=== PATIENT | female | born 1965 | race African-American/Black ===

== ENCOUNTER 2016-10-15 01:34 | Inpatient (IN) ==
[2016-10-15] MEDS ORDERED: ALBUTEROL 2.5 MG/3 ML NEB RESP TX STA (01:48)
[2016-10-15] MEDS ORDERED: DEXAMETHASONE 4 MG/1 ML VIAL IM STA (01:48)
[2016-10-15] MEDS ORDERED: DEXAMETHASONE 4 MG/1 ML VIAL ONE (01:53)
--- NOTE | 2016-10-15 02:43 | Emergency Department Note ---
IJessica Sierra, am scribing for, and in the presence of, Nic Brooks MD 01:52. Todd Ferrell Robert M, MD, personally performed the services described in this documentation, ascribed by Caterina Lopez in my presence, and it is both accurate and complete 241 . Arrival - Arrival Chief Complaint: Shortness of Breath Stated Complaint: wheezing ED Nursing Triage Note: pt arrives with complaint of shortness of breath and wheezing. pt states she was seen here thursday night for same complaint. pt given RT trtmt x 3 here and Rx's pt states she did not get filled. pt states she is not better, states she cannot breath. Mode of Arrival: Ambulatory Limitations: No Limitations Source: Patient - History of Present Illness HPI Narrative: Pt is a 51 y/o female that came to the ED with c/o SOB and wheezing that has not gotten better since she was here Thursday, October 13, 2016. Pt states she was give prescriptions but did not get them filled. She states she took an inhaler and Nyquil for relief last night. Pt is unaware if she has had a fever. No other complaints/pain in ED. Onset (ago): day(s) Consistency: constant Severity: mild Severity scale (1-10): 2 Quality: other Date of Last Menstrual Period: hyst Allergies/Adverse Reactions: Allergies Allergy/AdvReac Type Severity Reaction Status Date / Time hydrocodone Allergy ITCHING Verified 10/15/16 01:42 Home Medications: Home Medications Medication Instructions Recorded Confirmed Type Albuterol Inhaler [Proventil 2 puff INH Q6HR PRN 12/21/14 10/15/16 History Inhaler] Budesonide/Formoterol 160-4.5 2 puff INH BID 05/01/15 10/15/16 History [Symbicort 160-4.5] [place]-3 Fatty Acids [Fish Oil] 1,000 mg PO DAILY 05/01/15 10/15/16 History Vit C/Ascorbate Ca/Ascorb Sod 500 mg PO DAILY 04/16/16 10/15/16 History [Vitamin C 500 mg/15 ml Liquid] Mesalamine Tab [Asacol HD] 2 tablet PO TID PRN 06/04/16 10/15/16 History Estradiol Tab [Estrace Tab] 1 mg PO DAILY 07/08/16 10/15/16 History Pantoprazole Tab [Protonix Tab] 40 mg PO DAILY #30 tablet 08/14/16 10/15/16 Rx Albuterol Inhaler [Proventil 1 puff INH Q6H PRN #1 inhaler 10/14/16 10/15/16 Rx Inhaler] methylPREDNISolone DOSEPAK [Medrol 4 mg PO DIRECTED #1 packet 10/14/16 Rx Dosepak] Review of System - Review of System 12 point system: reviewed and no additional remarkable complaints except as stated - Review of System Constitutional: Absent: chills, fever Respiratory: Present: wheezing, other (SOB) Gastrointestinal: Absent: abdominal pain Skin: Absent: rash Neurological: Absent: headache Psychiatric: Absent: anxiety Medical,Surgical,& Family Hx - Medical History Psychological: No history of: Anxiety Disorders Neurology: No history of: Seizures HEENT: History of: Eye Problem (glasses) Endocrine: History of: Endocrine Problems (borderline diabetic) Respiratory: History of: Asthma Genitourinary: No history of: Bladder Problem, Kidney Stones Gastrointestinal: History of: GERD, Ulcerative Colitis, GI Problems (hiatal hernia, ulcerative colitis, dysphagia) No history of: Hepatitis, Liver Problems Other: No history of: Anesthesia Reactions, Cancer - Surgical History Cardiac Surgeries: Patient Denies: Cardiac Catheterization Thoracic Surgeries: Patient denies;: Lobectomy Neurologic Surgeries: Patient denies: Neurologic Surgery HEENT Surgeries: Patient denies: Tonsilectomy & Adenoidectomy Abdominal Surgeries: Surgical HX of: Colonoscopy, EGD Patient denies: Appendectomy, Cholecystectomy Reproductive Surgeries: Surgical HX of;: Hysterectomy Patient denies;: Breast Surgery, Genitourinary Surgery Orthopedic Surgeries: Surgical HX of;: Orthopedic Surgery (RIGHT KNEE) - Family History Family History: Reports;: Family Cancer (mother-lung), Family Diabetes, Family Heart Disease, Family Hypertension, Family Stroke - Social History Smoking Status: Never smoker Frequency of Alcohol Use: None Type of Drug Use: None Exam Vital Signs: Vital Signs Temperature 98.6 F 10/15/16 01:38 Pulse Rate 78 10/15/16 02:29 Respiratory Rate 22 10/15/16 02:35 Blood Pressure 149/84 10/15/16 02:29 O2 Sat by Pulse Oximetry 94 L 10/15/16 02:29 - General General appearance: alert, in no apparent distress - Head Head exam: Present: atraumatic, normocephalic - Eye Eye exam: Present: PERRL, EOMI - ENT ENT exam: Present: mucous membranes moist. Absent: mucous membranes dry - Neck Neck exam: Present: full ROM. Absent: tenderness - Chest Chest inspection: Present: symmetric chest wall rise. Absent: tenderness - Respiratory Respiratory exam: Present: wheezes, other (tachypnic) - Cardiovascular Cardiovascular exam: Present: regular rate, normal rhythm, normal heart sounds - Abdominal Exam Abdominal exam: Present: soft. Absent: tenderness - Extremities Exam Extremities exam: Present: full ROM. Absent: tenderness - Back Exam Back exam: Present: full ROM. Absent: tenderness - Neurological Exam Neurological exam: Present: alert, oriented X3, CN II-XII intact. Absent: motor sensory deficit - Psychiatric Psychiatric exam: Present: normal affect, normal mood - Skin Skin exam: Present: warm, dry Course - Reevaluation(s) Reevaluation #1: The hospital has elected to clean the floors tonight. The chemicals have not improve the patient's symptoms. Given the extensive workup performed previous night, no further workup is necessary. Time: 02:41 - Consultations Consultation #1: Dr. Derek Chow will evaluate and admit the patient. Time: 02:41 Disposition Clinical Impression: Asthma with exacerbation Case discussed with: patient, patient's family Disposition: Still a Patient Condition: Stable Time of Disposition: 02:43
--- NOTE | 2016-10-15 03:17 | Hospitalist History & Physical ---
Assessment and Plan (1) History of esophageal stricture Status: Acute Current Visit: Yes (2) GERD (gastroesophageal reflux disease) Status: Acute Current Visit: Yes (3) Asthma with exacerbation Status: Acute Assessment and plan: Plan for patient Admit the patient scheduled breathing [facility]pi[facility] Current Visit: Yes History of Present Illness Chief complaint: shortness of breath History of present illness: Ms. Saenz is a 51 year old female with past medical history significant for reflux hiatal hernia esophageal strictures and asthma who was in normal state of health till the past 4-5 days. Patient's been having significant wheezing. She came in last night she received 3 breathing treatments her symptoms improved. Patient was able to be discharged. She did not fill her prescriptions. She returns now with same symptoms. Home Medications Medication Instructions Recorded Confirmed Type Albuterol Inhaler [Proventil 2 puff INH Q6HR PRN 12/21/14 10/15/16 History Inhaler] Budesonide/Formoterol 160-4.5 2 puff INH BID 05/01/15 10/15/16 History [Symbicort 160-4.5] [place]-3 Fatty Acids [Fish Oil] 1,000 mg PO DAILY 05/01/15 10/15/16 History Vit C/Ascorbate Ca/Ascorb Sod 500 mg PO DAILY 04/16/16 10/15/16 History [Vitamin C 500 mg/15 ml Liquid] Mesalamine Tab [Asacol HD] 2 tablet PO TID PRN 06/04/16 10/15/16 History Estradiol Tab [Estrace Tab] 1 mg PO DAILY 07/08/16 10/15/16 History Pantoprazole Tab [Protonix Tab] 40 mg PO DAILY #30 tablet 08/14/16 10/15/16 Rx Albuterol Inhaler [Proventil 1 puff INH Q6H PRN #1 inhaler 10/14/16 10/15/16 Rx Inhaler] methylPREDNISolone DOSEPAK [Medrol 4 mg PO DIRECTED #1 packet 10/14/16 Rx Dosepak] Allergies Allergy/AdvReac Type Severity Reaction Status Date / Time hydrocodone Allergy ITCHING Verified 10/15/16 01:42 Medical,Surgical,& Family Hx - Medical History Psychological: No history of: Anxiety Disorders Neurology: No history of: Seizures HEENT: History of: Eye Problem (glasses) Endocrine: History of: Endocrine Problems (borderline diabetic) Respiratory: History of: Asthma Genitourinary: No history of: Bladder Problem, Kidney Stones Gastrointestinal: History of: GERD, Ulcerative Colitis, GI Problems (hiatal hernia, ulcerative colitis, dysphagia) No history of: Hepatitis, Liver Problems Other: No history of: Anesthesia Reactions, Cancer - Surgical History Cardiac Surgeries: Patient Denies: Cardiac Catheterization Thoracic Surgeries: Patient denies;: Lobectomy Neurologic Surgeries: Patient denies: Neurologic Surgery HEENT Surgeries: Patient denies: Tonsilectomy & Adenoidectomy Abdominal Surgeries: Surgical HX of: Colonoscopy, EGD Patient denies: Appendectomy, Cholecystectomy Reproductive Surgeries: Surgical HX of;: Hysterectomy Patient denies;: Breast Surgery, Genitourinary Surgery Orthopedic Surgeries: Surgical HX of;: Orthopedic Surgery (RIGHT KNEE) - Family History Family History: Reports;: Family Cancer (mother-lung), Family Diabetes, Family Heart Disease, Family Hypertension, Family Stroke - Social History Smoking Status: Never smoker Frequency of Alcohol Use: None Type of Drug Use: None 12 point system: reviewed and no additional remarkable complaints except as stated Exam - Constitutional Vitals: Period Temp Pulse Resp BP Sys/Pickett Pulse Ox Last 24 Hr 98.6 F 68-89 18-22 143-149/84-93 93-100 General appearance: normal weight - Head Head exam: Present: normal inspection - Eye Eye exam: Present: EOMI Pupils: Present: JUSTIN - ENT ENT exam: Present: normal exam - Neck Neck exam: Present: normal inspection - Respiratory Respiratory exam: Present: wheezes - Cardiovascular Cardiovascular exam: Present: regular rate and rhythm - GI/Abdominal GI/Abdominal exam: Present: normal bowel sounds - Extremities Exam Extremities exam: Present: normal inspection - Back Exam Back exam: Present: normal inspection - Neurological Exam Neurological exam: Present: alert - Psychiatric Psychiatric exam: Present: normal affect, normal mood - Skin Skin exam: Present: normal color Quality Measures - Stroke Onset of Symptoms Date: 10/13/16
[2016-10-15] MEDS ORDERED: ALBUTEROL 2.5 MG/3 ML NEB RESP TX PRN (03:19)
[2016-10-15] MEDS ORDERED: ACETAMINOPHEN 325 MG TABLET PO PRN (03:19)
[2016-10-15] MEDS ORDERED: ONDANSETRON 4 MG/2 ML VIAL IV PRN (03:19)
[2016-10-15 03:38] LABS: Basophils % 0.3 % (0.0-0.8); Eosinophils # 0.3 10*3/uL (0.0-0.87); Eosinophils % 3.8 % (0.00-10.9); Hematocrit 47.7 VOL% (35.7-47.0); Hemoglobin 15.6 GM/DL (12.0-16.0); Immature Granulocytes % 0.1 %; Immature Granulocytes Absolute 0.01 #; Lymphocytes # 2.9 10*3/uL (1.4-4.0); Lymphocytes % 40.7 % (21.3-54.2); Mean Corpuscular HGB Conc 32.7 GM/DL (32-36); Mean Corpuscular Hemoglobin 30 PG (27-34); Mean Corpuscular Volume 90.9 FL (87-102); Monocytes # 0.6 10*3/uL (0.11-0.8); Monocytes % 8.7 % (1.7-12.7); Neutrophils # 3.3 10*3/uL (1.4-7.4); Neutrophils % 46.4 % (38.7-73.9); Platelet Count 183 T/CUMM (130-400); Red Blood Count 5.25 MC/CUMM (3.8-5.5); Red Cell Distribution Width 13.3 % (9.3-17.3); White Blood Count 7.1 T/CUMM (4-12)
[2016-10-15 03:57] LABS: Calcium 9.4 MG/DL (8.5-10.1); Osmolality,Calculated 291.3 MOS/KG (273-304); Potassium 3.6 MMOL/L (3.5-5.1)
[2016-10-15] MEDS ORDERED: MESALAMINE 800 MG TABLET PO PRN (04:00)
[2016-10-15] MEDS: ALBUTEROL/IPRATROPIUM 3 ML NEB RESP TX SCH ×3 (07:07→20:13)
[2016-10-15] MEDS: ASCORBIC ACID 500 MG TABLET PO SCH (09:56)
[2016-10-15] MEDS: PANTOPRAZOLE 40 MG TABLET PO SCH (09:56)
[2016-10-15] MEDS: ESTRADIOL 1 MG TABLET PO SCH ×2 (09:56→10:00)
[2016-10-15] MEDS: OMEGA 3 ACID ETHYL ESTERS 1 GM CAPSULE PO SCH (09:56)
[2016-10-15] MEDS: ENOXAPARIN 40 MG/0.4 ML SYRINGE SUBCUT SCH (09:57)
[2016-10-15] MEDS: BUDESONIDE/FORMOTEROL 160-4.5 INHALER 6 GM INH SCH ×2 (09:57→20:40)
[2016-10-15] MEDS: methylPREDNISolone SOD SUC 125 MG/2 ML VIAL IV SCH ×3 (10:05→21:04)
--- NOTE | 2016-10-15 13:47 | XRay Report ---
Referring Physician: Derek Chow Exam: XR chest 1V portable Date: October 15, 2016 at 10:23 AM Reason: Shortness of breath Comparison: Chest one view portable October 13, 2016 Findings: The cardiac silhouette is normal in size. No focal consolidation, pneumothorax or pleural effusion is identified. No acute osseous process is seen, but there are prominent bilateral cervical ribs. There is also mild thoracolumbar scoliosis. Impression: 1. No acute cardiopulmonary process is identified. 2. Bilateral cervical ribs. PROCEDURE INTERPRETED AT [facility] Final Report Signed by: Dr. Michel Bo
[2016-10-16] MEDS: ALBUTEROL/IPRATROPIUM 3 ML NEB RESP TX SCH ×4 (00:48→19:45)
[2016-10-16] MEDS: methylPREDNISolone SOD SUC 125 MG/2 ML VIAL IV SCH ×4 (04:07→21:05)
--- NOTE | 2016-10-16 08:46 | Hospitalist Progress Note ---
Assessment and Plan (1) History of esophageal stricture Status: Acute Current Visit: Yes (2) GERD (gastroesophageal reflux disease) Status: Acute Current Visit: Yes (3) Asthma with exacerbation Status: Acute Assessment and plan: Plan for patient Admit the patient scheduled breathing services ster[facility]s home meds as appropiate 10/16/16 patient has not is progressing as fast as I would walk of 102. She still having significant wheezing I'll consult pulmonary for their input on her. She has previously seen pulmonary in the past. Current Visit: Yes Hospitalist: Subjective Interval history: Patient still having significant wheezing with her asthma Exam - Constitutional Vitals: Period Temp Pulse Resp BP Sys/Pickett Pulse Ox Last 24 Hr 97.5 F-98.6 F 67-91 18-20 116-132/56-75 90-100 General appearance: normal weight - Head Head exam: Present: normal inspection - Eye Eye exam: Present: EOMI Pupils: Present: JUSTIN - ENT ENT exam: Present: normal exam - Neck Neck exam: Present: normal inspection - Respiratory Respiratory exam: Present: wheezes - Cardiovascular Cardiovascular exam: Present: regular rate and rhythm - GI/Abdominal GI/Abdominal exam: Present: normal bowel sounds - Extremities Exam Extremities exam: Present: normal inspection - Back Exam Back exam: Present: normal inspection - Neurological Exam Neurological exam: Present: alert - Psychiatric Psychiatric exam: Present: normal affect, normal mood - Skin Skin exam: Present: normal color Results - Labs CBC & BMP: 10/15/16 02:48 10/15/16 02:48 Quality Measures - Stroke Onset of Symptoms Date: 10/13/16 Symptom Onset Unknown: No
--- NOTE | 2016-10-16 09:18 | Gastrointestinal Consult Note ---
Assessment and Plan (1) Dysphagia Status: Acute Assessment and plan: 2/2-History of esophageal stricture with multiple dilations in the past, presenting with wheezing and atypical dysphagia symptoms. Reports same symptoms as in past when dilation needed, which resolved her wheezing. Will tentatively plan for EGD tomorrow if she is stable from resp standpoint. Plan and addendum to follow by Dr Steven. Current Visit: Yes History of Present Illness Chief complaint: Dysphagia History of present illness: Ms. Saenz is a 51 year old female who presents to the hospital with onset of SOB and wheezing. Pt has a history of asthma that is controlled fairly well at home however she states over the last several days she has had an increase in wheezing despite her treatments at home. Pt states that when this occurs it is usually due to her esophagus needing dilating, which she has a history of several dilations in the past. She denies any fever, cough or sputum production. States that she has just been more tired than usual since onset several days ago. She came to the ER two nights ago with the same symptoms and was discharged home. She presented back to the hospital on yesterday with no relief in her wheezing. She was admitted for further workup. She has a history of GERD, which she takes Protnix for regularly, and states this seems to be a little worse the last several days. She denies any difficulty swallowing at present however states her symptoms are not typical when she has another esophageal stricture, stating it usually presents with wheezing and a feeling of tightness in her chest. Her last EGD was in April with dilation. Her colonoscopy was done in Jul with findings of colon edema with pathology showing self limiting colitis. She denies any weight loss with this. Denies any abdominal or epigastric pain. Chest xray shows no acute processes however she is actively wheezing and noted to have a decrease in her oxygen saturation this morning. Discussed with Dr Chow and she is not able to have EGD today due to her asthma however will tentatively plan on this tomorrow with Dr Berger (who will be chuck wagon cook for Dr Steven) on tomorrow if she remains stable. Home Medications Medication Instructions Recorded Confirmed Type Albuterol Inhaler [Proventil 2 puff INH Q6HR PRN 12/21/14 10/15/16 History Inhaler] Budesonide/Formoterol 160-4.5 2 puff INH BID 05/01/15 10/15/16 History [Symbicort 160-4.5] [place]-3 Fatty Acids [Fish Oil] 1,000 mg PO DAILY 05/01/15 10/15/16 History Vit C/Ascorbate Ca/Ascorb Sod 500 mg PO DAILY 04/16/16 10/15/16 History [Vitamin C 500 mg/15 ml Liquid] Mesalamine Tab [Asacol HD] 2 tablet PO TID PRN 06/04/16 10/15/16 History Estradiol Tab [Estrace Tab] 1 mg PO DAILY 07/08/16 10/15/16 History Pantoprazole Tab [Protonix Tab] 40 mg PO DAILY #30 tablet 08/14/16 10/15/16 Rx Albuterol Inhaler [Proventil 1 puff INH Q6H PRN #1 inhaler 10/14/16 10/15/16 Rx Inhaler] Allergies Allergy/AdvReac Type Severity Reaction Status Date / Time hydrocodone Allergy Intermediate ITCHING Verified 10/15/16 04:10 Medical,Surgical,& Family Hx - Medical History Psychological: No history of: Anxiety Disorders Neurology: No history of: Seizures HEENT: History of: Eye Problem (glasses) Comment Only: HEENT Problems (Esophogeal Strictor) Endocrine: History of: Endocrine Problems (borderline diabetic) Respiratory: History of: Asthma Genitourinary: No history of: Bladder Problem, Kidney Stones Gastrointestinal: History of: GERD, Ulcerative Colitis, GI Problems (hiatal hernia, ulcerative colitis, dysphagia) No history of: Hepatitis, Liver Problems Other: No history of: Anesthesia Reactions, Cancer - Surgical History Cardiac Surgeries: Patient Denies: Cardiac Catheterization Thoracic Surgeries: Patient denies;: Lobectomy Neurologic Surgeries: Patient denies: Neurologic Surgery HEENT Surgeries: Patient denies: Tonsilectomy & Adenoidectomy Abdominal Surgeries: Surgical HX of: Colonoscopy, EGD Patient denies: Appendectomy, Cholecystectomy Reproductive Surgeries: Surgical HX of;: Hysterectomy Patient denies;: Breast Surgery, Genitourinary Surgery Orthopedic Surgeries: Surgical HX of;: Orthopedic Surgery (RIGHT KNEE) - Family History Family History: Reports;: Family Cancer (mother-lung), Family Diabetes, Family Heart Disease, Family Hypertension, Family Stroke - Social History Smoking Status: Never smoker Frequency of Alcohol Use: None Type of Drug Use: None 12 point system: reviewed and no additional remarkable complaints except as stated - Constitutional Constitutional: Present: as per HPI - EENT Eyes: Present: as per HPI Ears: Present: as per HPI Nose, mouth and throat: Present: as per HPI, dysphagia - Cardiovascular Cardiovascular: Present: as per HPI - Respiratory Respiratory: Present: as per HPI, wheezing - Gastrointestinal Gastrointestinal: Present: as per HPI, dysphagia - Genitourinary Genitourinary: Present: as per HPI - Musculoskeletal Musculoskeletal: Present: as per HPI - Neurological Neurological: Present: as per HPI - Psychiatric Psychiatric: Present: as per HPI - Endocrine Endocrine: Present: as per HPI - Hematologic/Lymphatic Hematologic/Lymphatic: Present: as per HPI Exam - Constitutional Vitals: Period Temp Pulse Resp BP Sys/[place] Pulse Ox Last 24 Hr 97.5 F-98.6 F 67-91 18-20 116-132/56-75 90-100 General appearance: normal weight, no acute distress - Head Head exam: Present: normal inspection, normocephalic - Eye Eye exam: Present: other (lids and conjunctiva unremarkable). Absent: scleral icterus - ENT ENT exam: Present: normal exam, normal oropharynx - Neck Neck exam: Present: normal inspection - Respiratory Respiratory exam: Present: clear to auscultation bilaterally. Absent: rales, rhonchi, wheezes - Cardiovascular Cardiovascular exam: Present: regular rate and rhythm. Absent: diastolic murmur , JVD, systolic murmur - GI/Abdominal GI/Abdominal exam: Present: normal bowel sounds, soft. Absent: ascites, distended, mass, organomegaly, tenderness - Extremities Exam Extremities exam: Present: normal inspection, full ROM - Back Exam Back exam: Present: normal inspection - Neurological Exam Neurological exam: Present: alert, oriented X3 - Psychiatric Psychiatric exam: Present: normal affect, normal mood - Skin Skin exam: Present: normal color, warm, dry Results - Labs CBC & BMP: 10/15/16 02:48 10/15/16 02:48 Lab Results: I have reviewed the past 24 hour labs - Diagnostic Findings Procedure: Chest x-ray: report reviewed by me Quality Measures - Stroke Onset of Symptoms Date: 10/13/16 Symptom Onset Unknown: No
[2016-10-16] MEDS: ASCORBIC ACID 500 MG TABLET PO SCH (09:19)
[2016-10-16] MEDS: ESTRADIOL 1 MG TABLET PO SCH (09:19)
[2016-10-16] MEDS: OMEGA 3 ACID ETHYL ESTERS 1 GM CAPSULE PO SCH (09:19)
[2016-10-16] MEDS: PANTOPRAZOLE 40 MG TABLET PO SCH (09:19)
[2016-10-16] MEDS: ENOXAPARIN 40 MG/0.4 ML SYRINGE SUBCUT SCH (09:20)
[2016-10-16] MEDS: BUDESONIDE/FORMOTEROL 160-4.5 INHALER 6 GM INH SCH ×2 (09:22→21:06)
--- NOTE | 2016-10-16 13:10 | Pulmonology Consult Note ---
Assessment and Plan (1) Asthma with exacerbation Status: Acute Assessment and plan: The patient comes in with a week of coughing and wheezing and probably has some sinus congestion. She has mild asthma but is having a mild exacerbation. She should clear fairly well on steroids and bronchodilator therapy. Current Visit: Yes (2) History of esophageal stricture Status: Acute Assessment and plan: She has been seen by GI and may need an EGD and dilatation. Current Visit: Yes (3) GERD (gastroesophageal reflux disease) Status: Acute Assessment and plan: Her reflux symptoms will continue to be treated. Current Visit: Yes History of Present Illness Chief complaint: shortness of breath History of present illness: Ms. Saenz is a 51 year old black female that has a history of having mild asthma in the past. I have not seen her since 2013. She says she's been doing well with her breathing to this past week. She has had some sinus congestion and drainage the past week. She has been coughing and wheezing and she says he gets a little worse at night. She is not having any fever or purulent secretions. She is mainly just wheezing and having a little bit of shortness of breath. She also has a history of dysphagia and has had dilatations in the past. She has use Symbicort in the past but doesn't use it regularly. Home Medications Medication Instructions Recorded Confirmed Type Albuterol Inhaler [Proventil 2 puff INH Q6HR PRN 12/21/14 10/15/16 History Inhaler] Budesonide/Formoterol 160-4.5 2 puff INH BID 05/01/15 10/15/16 History [Symbicort 160-4.5] [place]-3 Fatty Acids [Fish Oil] 1,000 mg PO DAILY 05/01/15 10/15/16 History Vit C/Ascorbate Ca/Ascorb Sod 500 mg PO DAILY 04/16/16 10/15/16 History [Vitamin C 500 mg/15 ml Liquid] Mesalamine Tab [Asacol HD] 2 tablet PO TID PRN 06/04/16 10/15/16 History Estradiol Tab [Estrace Tab] 1 mg PO DAILY 07/08/16 10/15/16 History Pantoprazole Tab [Protonix Tab] 40 mg PO DAILY #30 tablet 08/14/16 10/15/16 Rx Albuterol Inhaler [Proventil 1 puff INH Q6H PRN #1 inhaler 10/14/16 10/15/16 Rx Inhaler] Allergies Allergy/AdvReac Type Severity Reaction Status Date / Time hydrocodone Allergy Intermediate ITCHING Verified 10/15/16 04:10 - Constitutional Constitutional: Present: fatigue. Absent: chills, fever(s), weight gain - EENT Eyes: Absent: loss of vision Ears: Absent: decreased hearing Nose, mouth and throat: Present: nasal congestion. Absent: dysphagia, headache( s) - Cardiovascular Cardiovascular: Absent: chest pain at rest, orthopnea, palpitations, PND - Respiratory Respiratory: Present: cough, wheezing. Absent: pain on inspiration, change in phlegm color - Gastrointestinal Gastrointestinal: Present: dysphagia. Absent: abdominal pain, change in bowel habits, nausea, vomiting - Genitourinary Genitourinary: Absent: dysuria, hematuria, urinary frequency - Musculoskeletal Musculoskeletal: Absent: arthralgias, muscle weakness - Neurological Neurological: Absent: abnormal speech, focal weakness, paresthesias - Psychiatric Psychiatric: Present: anxiety Exam (Pulmon) H&P - Constitutional Vitals: Period Temp Pulse Resp BP Sys/Pickett Pulse Ox Last 24 Hr 97.3 F-98.6 F 72-91 18-20 116-159/56-75 90-100 General appearance: normal weight, no acute distress - Head Head exam: Present: normal inspection, normocephalic - Eye Eye exam: Present: EOMI. Absent: scleral icterus Pupils: Present: JUSTIN - ENT ENT exam: Present: normal exam - Neck Neck exam: Present: normal inspection. Absent: lymphadenopathy, thyromegaly - Respiratory Respiratory exam: Present: wheezes. Absent: accessory muscle use, rales - Cardiovascular Cardiovascular exam: Present: regular rate and rhythm. Absent: gallop, systolic murmur - GI/Abdominal GI/Abdominal exam: Present: normal bowel sounds, soft. Absent: organomegaly, tenderness - Extremities Exam Extremities exam: Absent: calf tenderness, edema - Back Exam Back exam: Present: normal inspection - Neurological Exam Neurological exam: Present: alert, oriented X3, normal gait, CN II-XII intact - Psychiatric Psychiatric exam: Present: normal affect - Skin Skin exam: Present: warm, dry Medical,Surgical,& Family Hx - Medical History Psychological: No history of: Anxiety Disorders Neurology: No history of: Seizures HEENT: History of: Eye Problem (glasses) Comment Only: HEENT Problems (Esophogeal Strictor) Endocrine: History of: Endocrine Problems (borderline diabetic) Respiratory: History of: Asthma Genitourinary: No history of: Bladder Problem, Kidney Stones Gastrointestinal: History of: GERD, Ulcerative Colitis, GI Problems (hiatal hernia, ulcerative colitis, dysphagia) No history of: Hepatitis, Liver Problems Other: No history of: Anesthesia Reactions, Cancer - Surgical History Cardiac Surgeries: Patient Denies: Cardiac Catheterization Thoracic Surgeries: Patient denies;: Lobectomy Neurologic Surgeries: Patient denies: Neurologic Surgery HEENT Surgeries: Patient denies: Tonsilectomy & Adenoidectomy Abdominal Surgeries: Surgical HX of: Colonoscopy, EGD Patient denies: Appendectomy, Cholecystectomy Reproductive Surgeries: Surgical HX of;: Hysterectomy Patient denies;: Breast Surgery, Genitourinary Surgery Orthopedic Surgeries: Surgical HX of;: Orthopedic Surgery (RIGHT KNEE) - Family History Family History: Reports;: Family Cancer (mother-lung), Family Diabetes, Family Heart Disease, Family Hypertension, Family Stroke - Social History Smoking Status: Never smoker Frequency of Alcohol Use: None Type of Drug Use: None Results - Labs CBC & BMP: 10/15/16 02:48 10/15/16 02:48 - Diagnostic Findings Procedure: Chest x-ray: image reviewed by me, report reviewed by me (chest x- ray is clear) Quality Measures - Stroke Onset of Symptoms Date: 10/13/16 Symptom Onset Unknown: No
[2016-10-16] MEDS ORDERED: MAGNESIUM HYDROXIDE SUSP 30 ML UDCUP PO PRN (18:26)
[2016-10-16] MEDS ORDERED: MONTELUKAST 10 MG TABLET PO SCH (21:00)
[2016-10-17] MEDS: ALBUTEROL/IPRATROPIUM 3 ML NEB RESP TX SCH ×2 (00:14→09:28)
[2016-10-17] MEDS: methylPREDNISolone SOD SUC 125 MG/2 ML VIAL IV SCH ×2 (04:59→09:48)
--- NOTE | 2016-10-17 07:52 | XRay Report ---
Referring Physician: Derek Chow Exam: XR chest 1V portable Date: October 17, 2016 at 5:56 AM Reason: Shortness of breath Comparison: Chest one view portable October 15, 2016 Findings: The cardiac silhouette is normal in size. No focal consolidation, pneumothorax or pleural effusion is identified. The osseous structures appear stable with bilateral cervical ribs. Impression: No acute cardiopulmonary process is identified. PROCEDURE INTERPRETED AT [facility] Final Report Signed by: Dr. Michel Bo
--- NOTE | 2016-10-17 09:21 | Discharge Summary ---
Hospital Course - Hospital Course Hospital Course: Patient's a 49-year-old -[place] female past medical history significant for reflux hiatal hernia esophageal stricture and asthma who was in normal state of health till the past 4-5 days prior to admission. She had been having some significant wheezing. She came into emergency room and had 3 breathing treatments her symptoms improved. She was able to be discharged in the emergency room and she did not fill her prescriptions. She presented back to the emergency room with the same symptoms. I was consulted to admit her. Put her on scheduled steroid scheduled breathing treatments she was slow to improve initially consulted pulmonary for their guidance and she is turned around fairly quickly to the point where he can discharge her home she can follow-up with Dr. Garzon as needed. - Time spent with patient Time with patient DS: Greater than 30 minutes Diagnosis - Discharge Diagnosis (1) History of esophageal stricture Status: Acute (2) GERD (gastroesophageal reflux disease) Status: Acute (3) Asthma with exacerbation Status: Acute Discharge Plan - Discharge Data Disposition: Disch To Home/Self Care Condition at Discharge: Stable Discharge Diet: advance to your usual diet Activity: resume usual activities as tolerated - Discharge Medications New Acetaminophen Tab [Tylenol Tab] 650 mg PO Q4H PRN #0 tablet PRN Reason: fever, headache/body aches predniSONE TAB [PredniSONE] 40 mg PO DAILY #16 tablet Montelukast Tab [Singulair Tab] 10 mg PO BEDTIME #30 tablet Continue Albuterol Inhaler [Proventil Inhaler] 2 puff INH Q6HR PRN PRN Reason: Wheezing Budesonide/Formoterol 160-4.5 [Symbicort 160-4.5] 2 puff INH BID [place]-3 Fatty Acids [Fish Oil] 1,000 mg PO DAILY Vit C/Ascorbate Ca/Ascorb Sod [Vitamin C 500 mg/15 ml Liquid] 500 mg PO DAILY Mesalamine Tab [Asacol HD] 2 tablet PO TID PRN PRN Reason: Pain Estradiol Tab [Estrace Tab] 1 mg PO DAILY Pantoprazole Tab [Protonix Tab] 40 mg PO DAILY #30 tablet Discontinued Albuterol Inhaler [Proventil Inhaler] 1 puff INH Q6H PRN #1 inhaler PRN Reason: Shortness Of Breath/Wheezing - Follow Up or Referral - Forms/Instructions Exam - Constitutional Vitals: Period Temp Pulse Resp BP Sys/Pickett Pulse Ox Last 24 Hr 96.3 F-97.8 F 71-84 18-20 113-159/64-85 91-99 General appearance: normal weight - Head Head exam: Present: normal inspection - Eye Eye exam: Present: EOMI Pupils: Present: JUSTIN - ENT ENT exam: Present: normal exam - Neck Neck exam: Present: normal inspection - Respiratory Respiratory exam: Present: Currently clear - Cardiovascular Cardiovascular exam: Present: regular rate and rhythm - GI/Abdominal GI/Abdominal exam: Present: normal bowel sounds - Extremities Exam Extremities exam: Present: normal inspection - Back Exam Back exam: Present: normal inspection - Neurological Exam Neurological exam: Present: alert - Psychiatric Psychiatric exam: Present: normal affect, normal mood - Skin Skin exam: Present: normal color DS: Provider Date of admission: 10/15/16 03:19 Primary care physician: Jin Joseph MD Attending physician on admission: Derek Chow MD Discharging clinician: Derek Chow MD
[2016-10-17] MEDS: ESTRADIOL 1 MG TABLET PO SCH (09:47)
[2016-10-17] MEDS: ASCORBIC ACID 500 MG TABLET PO SCH (09:47)
[2016-10-17] MEDS: PANTOPRAZOLE 40 MG TABLET PO SCH (09:47)
[2016-10-17] MEDS: OMEGA 3 ACID ETHYL ESTERS 1 GM CAPSULE PO SCH (09:47)
[2016-10-17] MEDS: BUDESONIDE/FORMOTEROL 160-4.5 INHALER 6 GM INH SCH (09:49)
[2016-10-17] MEDS: ENOXAPARIN 40 MG/0.4 ML SYRINGE SUBCUT SCH (09:49)
--- NOTE | 2016-10-17 10:12 | Pulmonology Progress Note ---
Pulmonary - PN: Subj Interval history: The patient is a 51-year-old black lady that comes in with a mild asthma exacerbation. She has had some sinus stuffiness but no fever or purulent secretions. She feels much better today and her breathing is much better. She is tolerating medicines and her wheezing has resolved. She feels much better and wants to go home today. Exam (Progress Note) - Constitutional Vitals: Period Temp Pulse Resp BP Sys/Pickett Pulse Ox Last 24 Hr 96.3 F-97.8 F 71-87 18-20 113-159/64-85 91-99 Exam: General appearance: normal weight, no acute distress, she looks quite comfortable today. - Head Head exam: Present: normal inspection, normocephalic - Eye Eye exam: Present: EOMI. Absent: scleral icterus Pupils: Present: JUSTIN - ENT ENT exam: Present: normal exam, her sinus congestion is better. - Neck Neck exam: Present: normal inspection. Absent: lymphadenopathy, thyromegaly - Respiratory Respiratory exam: Present: Her lungs have good breath sounds I do not hear any wheezing now. - Cardiovascular Cardiovascular exam: Present: regular rate and rhythm. Absent: gallop, systolic murmur - GI/Abdominal GI/Abdominal exam: Present: normal bowel sounds, soft. Absent: organomegaly, tenderness - Extremities Exam Extremities exam: Absent: calf tenderness, edema - Back Exam Back exam: Present: normal inspection - Neurological Exam Neurological exam: Present: alert, oriented X3, normal gait, CN II-XII intact - Psychiatric Psychiatric exam: Present: normal affect - Skin Skin exam: Present: warm, dry Results - Labs CBC & BMP: 10/15/16 02:48 10/15/16 02:48 - Diagnostic Findings Procedure: Chest x-ray: image reviewed by me, report reviewed by me (chest x- ray is clear.) Assessment and Plan (1) Asthma with exacerbation Status: Acute Assessment and plan: The patient comes in with a week of coughing and wheezing and probably has some sinus congestion. She has mild asthma and has had a mild exacerbation. She has responded nicely to medicines and is doing well now. She can taper her steroids at home. Current Visit: Yes (2) History of esophageal stricture Status: Acute Assessment and plan: She has been seen by GI and will increase her Protonix and follow-up with GI as an outpatient. Current Visit: Yes (3) GERD (gastroesophageal reflux disease) Status: Acute Assessment and plan: Her reflux symptoms will continue to be treated. She will follow-up with GI. Current Visit: Yes
[2016-10-17 13:59] VITALS: BP 159/94
== END 2016-10-17 12:45 | disposition home or self-care (01) | DRG 203 ==
LOC: N.EDINP 01:34 → N.ED 01:34 → OBSVTOIN 03:19 → N.4E 03:50
PROVIDERS: ADMIT Internal Medicine; ATTEND Internal Medicine

== ENCOUNTER 2017-08-09 18:34 | Inpatient (IN) ==
[2017-08-09] MEDS ORDERED: methylPREDNISolone SOD SUC 125 MG/2 ML VIAL IV STA (19:29)
[2017-08-09] MEDS ORDERED: LEVOFLOXACIN INJ 750 MG in PREMIX 1 EACH IV STA (19:29)
[2017-08-09] MEDS ORDERED: ALBUTEROL 2.5 MG/3 ML NEB RESP TX SCH (19:30)
[2017-08-09] MEDS ORDERED: ALBUTEROL 2.5 MG/3 ML NEB RESP TX ONE (20:13)
[2017-08-09 20:28] LABS: Basophils # 0.1 10*3/uL (0.0-0.2); Basophils % 0.8 % (0.0-0.8); Eosinophils # 0.7 10*3/uL (0.0-0.87); Eosinophils % 11.5 % (0.00-10.9); Hematocrit 45.6 VOL% (35.7-47.0); Hemoglobin 14.9 GM/DL (12.0-16.0); Immature Granulocytes % 0.2 %; Immature Granulocytes Absolute 0.01 #; Lymphocytes # 2.6 10*3/uL (1.4-4.0); Lymphocytes % 40.8 % (21.3-54.2); Mean Corpuscular HGB Conc 32.7 GM/DL (32-36); Mean Corpuscular Hemoglobin 30 PG (27-34); Mean Corpuscular Volume 92.5 FL (87-102); Monocytes # 0.8 10*3/uL (0.11-0.8); Monocytes % 13.4 % (1.7-12.7); Neutrophils # 2.1 10*3/uL (1.4-7.4); Neutrophils % 33.3 % (38.7-73.9); Platelet Count 209 T/CUMM (130-400); Red Blood Count 4.93 MC/CUMM (3.8-5.5); Red Cell Distribution Width 13.3 % (9.3-17.3); White Blood Count 6.3 T/CUMM (4-12)
[2017-08-09] MEDS ORDERED: methylPREDNISolone SOD SUC 125 MG/2 ML VIAL ONE (20:36)
[2017-08-09] MEDS ORDERED: LEVOFLOXACIN INJ 150 ML IV ONE (20:36)
[2017-08-09 20:38] LABS: PT Patient Result 10.7 SECS; Partial Thromboplastin Time 28.7 SECS (0-40)
[2017-08-09 21:02] LABS: Albumin 3.7 G/DL (3.4-5.0); Bilirubin,Total 0.4 MG/DL (0.2-1.0); Osmolality,Calculated 303.4 MOS/KG (273-304); Potassium 4.1 MMOL/L (3.5-5.1); Total Protein 6.9 G/DL (6.4-8.3)
[2017-08-09 21:06] LABS: Amorphous Crystals,Urine Occasional /HPF (Few); Apearance,Urine Slightly Hazy (Clear); Bacteria,Urine Occasional /HPF (Few); Bilirubin,Urine Negative (Negative); Blood, Urine Negative (Negative); Glucose,Urine (UA) Negative (Negative); Ketones,Urine Negative (Negative); Mucus,Urine Occasional /LPF (Occasional); Nitrite,Urine Negative (Negative); Protein,Urine Negative; RBC,Urine <1 /HPF (0-4); Squamous Epithelial Cell,Urine Occasional /HPF (0-10); Urine Color Yellow (Yellow); Urine Specific Gravity 1.013 (1.001-1.035); Urine Urobilinogen < 2.0 EU/DL (0.2-1.0); WBC,Urine 2 /HPF (0-6)
[2017-08-09 21:09] LABS: Barbiturates Screen,Urine Negative (Negative); Benzodiazepines Screen,Urine Negative (Negative); Cannabinoid Screen,Urine Negative (Negative); Opiate Screen,Urine Negative (Negative); Phencyclidine Screen,Urine Negative (Negative)
[2017-08-09] MEDS ORDERED: SODIUM CHLORIDE 0.9% 1,000 ML IV STA (21:13)
[2017-08-09 21:21] LABS: Eosinophils 11 % (0-10); Lymphocytes 39 % (20-55); Platelet Estimate Normal; Poikilocytosis Slight; Segmented Neutrophils 35 % (50-85); Total Cells Counted 100
[2017-08-09 21:22] LABS: Burr Cells Few; Tear Drop Cells Slight
[2017-08-09] MEDS ORDERED: PANTOPRAZOLE 40 MG TABLET PO PRN (23:34)
[2017-08-09] MEDS ORDERED: BUDESONIDE/FORMOTEROL 160-4.5 INHALER 6 GM INH PRN (23:34)
[2017-08-09] MEDS ORDERED: MONTELUKAST 10 MG TABLET PO PRN (23:34)
[2017-08-09] MEDS ORDERED: sulfaSALAzine 500 MG TABLET PO PRN (23:34)
[2017-08-09] MEDS ORDERED: ALBUTEROL/IPRATROPIUM 3 ML NEB RESP TX PRN (23:34)
[2017-08-10] MEDS: ALBUTEROL/IPRATROPIUM 3 ML NEB RESP TX SCH ×4 (00:45→19:18)
[2017-08-10] MEDS: methylPREDNISolone SOD SUC 40 MG/1 ML VIAL IV SCH ×3 (04:06→21:15)
[2017-08-10] MEDS: ENOXAPARIN 40 MG/0.4 ML SYRINGE SUBCUT SCH (10:07)
[2017-08-10] MEDS ORDERED: ASCORBIC ACID 500 MG TABLET PO SCH (19:00)
[2017-08-10] MEDS ORDERED: OMEGA 3 ACID ETHYL ESTERS 1 GM CAPSULE PO SCH (19:00)
[2017-08-10] MEDS ORDERED: LEVOFLOXACIN INJ 750 MG in PREMIX 1 EACH IV SCH (20:30)
[2017-08-11] MEDS: ALBUTEROL/IPRATROPIUM 3 ML NEB RESP TX SCH ×2 (01:31→08:47)
[2017-08-11 05:11] LABS: Calcium 9.2 MG/DL (8.5-10.1); Osmolality,Calculated 287.8 MOS/KG (273-304); Potassium 3.9 MMOL/L (3.5-5.1)
[2017-08-11] MEDS: methylPREDNISolone SOD SUC 40 MG/1 ML VIAL IV SCH ×2 (05:24→12:29)
[2017-08-11] MEDS: ENOXAPARIN 40 MG/0.4 ML SYRINGE SUBCUT SCH (08:50)
[2017-08-11 12:13] VITALS: BP 158/71
== END 2017-08-11 14:41 | disposition home or self-care (01) | DRG 202 ==
LOC: N.ED 18:34 → N.EDINP 21:48 → N.4E 23:36
PROVIDERS: ADMIT Internal Medicine Geriatric Medicine; ATTEND Internal Medicine Geriatric Medicine

== ENCOUNTER 2018-11-08 22:22 | Observation (INO) ==
[2018-11-08] MEDS ORDERED: ONDANSETRON 4 MG/2 ML VIAL IV STA (22:54)
[2018-11-08] MEDS ORDERED: NITROGLYCERIN 2% OINT 1 INCH/GM PACK TOP STA (22:54)
[2018-11-08] MEDS ORDERED: ALUM/MAG/SIMETH/LIDO VISC 1:1 30 ML BOTTLE PO STA (22:54)
[2018-11-08] MEDS ORDERED: ASPIRIN 325 MG TABLET PO STA (22:54)
[2018-11-08 23:28] LABS: Basophils % 0.5 % (0.0-0.8); Eosinophils # 0.3 10*3/uL (0.0-0.87); Eosinophils % 3.2 % (0.00-10.9); Hematocrit 47.3 VOL% (35.7-47.0); Hemoglobin 15.1 GM/DL (12.0-16.0); Immature Granulocytes % 0.3 %; Immature Granulocytes Absolute 0.02 #; Lymphocytes # 2.5 10*3/uL (1.4-4.0); Lymphocytes % 32.7 % (21.3-54.2); Mean Corpuscular HGB Conc 31.9 GM/DL (32-36); Mean Corpuscular Hemoglobin 30 PG (27-34); Mean Corpuscular Volume 92.6 FL (87-102); Mean Platelet Volume 10.9 FL (9.6-12.0); Monocytes # 0.5 10*3/uL (0.11-0.8); Monocytes % 6.2 % (1.7-12.7); Neutrophils # 4.4 10*3/uL (1.4-7.4); Neutrophils % 57.1 % (38.7-73.9); Platelet Count 189 T/CUMM (130-400); Red Blood Count 5.11 MC/CUMM (3.8-5.5); Red Cell Distribution Width 13.2 % (9.3-17.3); White Blood Count 7.7 T/CUMM (4-12)
[2018-11-08 23:38] LABS: PT Patient Result 10.7 SECS
[2018-11-08 23:41] LABS: Apearance,Urine CLEAR (Clear); Bilirubin,Urine Negative (Negative); Blood, Urine Negative (Negative); Glucose,Urine (UA) Negative (Negative); Hyaline Casts,Urine 4 /LPF (0-3); Ketones,Urine Negative (Negative); Mucus,Urine Few /LPF (Occasional); Nitrite,Urine Negative (Negative); Protein,Urine Negative; RBC,Urine 1 /HPF (0-4); Urine Color Yellow (Yellow); Urine Specific Gravity 1.019 (1.001-1.035); WBC,Urine 1 /HPF (0-6)
[2018-11-08 23:45] LABS: Alanine Aminotransferase 28 U/L (13-56); Albumin 3.9 G/DL (3.4-5.0); Alkaline Phosphatase 106 U/L (45-117); Aspartate Amino Transferase 18 U/L (0-37); Bilirubin,Total < 0.39 MG/DL (0.2-1.0); Blood Urea Nitrogen 9 MG/DL (7-18); Calcium 9.2 MG/DL (8.5-10.1); Glucose 96 MG/DL (74-106); Osmolality,Calculated 281.1 MOS/KG (273-304); Potassium 3.8 MMOL/L (3.5-5.1); Sodium 142 MMOL/L (136-145); Total Protein 7.7 G/DL (6.4-8.3)
[2018-11-09] MEDS ORDERED: ENOXAPARIN 100 MG/ML SYRINGE SUBCUT STA (00:07)
[2018-11-09] MEDS ORDERED: MORPHINE 4 MG/1 ML VIAL IV PRN (01:42)
[2018-11-09] MEDS ORDERED: MAGNESIUM SULF RIDER 2 GM in PREMIX 1 EACH IV PRN (01:42)
[2018-11-09] MEDS ORDERED: MAGNESIUM SULF RIDER 4 GM in PREMIX 1 EACH IV PRN (01:42)
[2018-11-09] MEDS ORDERED: POTASSIUM CHLORIDE 20 MEQ TABLET PO PRN (01:42)
[2018-11-09] MEDS ORDERED: ONDANSETRON 4 MG/2 ML VIAL IV PRN (01:42)
[2018-11-09 02:30] LABS: Basophils % 0.4 % (0.0-0.8); Eosinophils # 0.3 10*3/uL (0.0-0.87); Eosinophils % 4.4 % (0.00-10.9); Hematocrit 44.9 VOL% (35.7-47.0); Hemoglobin 14.3 GM/DL (12.0-16.0); Immature Granulocytes % 0.1 %; Immature Granulocytes Absolute 0.01 #; Lymphocytes # 3.3 10*3/uL (1.4-4.0); Lymphocytes % 45.7 % (21.3-54.2); Mean Corpuscular HGB Conc 31.8 GM/DL (32-36); Mean Corpuscular Hemoglobin 30 PG (27-34); Mean Corpuscular Volume 92.8 FL (87-102); Mean Platelet Volume 10.7 FL (9.6-12.0); Monocytes # 0.5 10*3/uL (0.11-0.8); Monocytes % 7.5 % (1.7-12.7); Neutrophils % 41.9 % (38.7-73.9); Platelet Count 175 T/CUMM (130-400); Red Blood Count 4.84 MC/CUMM (3.8-5.5); Red Cell Distribution Width 13.2 % (9.3-17.3); White Blood Count 7.2 T/CUMM (4-12)
[2018-11-09 02:57] LABS: Alanine Aminotransferase 24 U/L (13-56); Albumin 3.2 G/DL (3.4-5.0); Alkaline Phosphatase 86 U/L (45-117); Aspartate Amino Transferase 15 U/L (0-37); Bilirubin,Total < 0.39 MG/DL (0.2-1.0); Blood Urea Nitrogen 9 MG/DL (7-18); Calcium 8.4 MG/DL (8.5-10.1); Cholesterol 257 MG/DL (50-200); Glucose 84 MG/DL (74-106); HDL Cholesterol 78 MG/DL (40-60); Potassium 3.6 MMOL/L (3.5-5.1); Risk Ratio 3.29; Sodium 143 MMOL/L (136-145); Thyroid Stimulating Hormone 0.875 uIU/ml (0.358-3.74); Total Protein 6.6 G/DL (6.4-8.3); Triglycerides 45 MG/DL (2-150)
[2018-11-09] MEDS: SODIUM CHLORIDE 0.9% 1,000 ML IV SCH (03:18)
[2018-11-09] MEDS: NITROGLYCERIN 2% OINT 1 INCH/GM PACK TOP SCH ×3 (06:00→17:14)
[2018-11-09] MEDS: BUDESONIDE/FORMOTEROL 160-4.5 INHALER 6 GM INH SCH ×3 (06:29→22:25)
[2018-11-09] MEDS ORDERED: BUDESONIDE/FORMOTEROL 160-4.5 INHALER 6 GM INH SCH (09:00)
[2018-11-09] MEDS ORDERED: PANTOPRAZOLE 40 MG TABLET PO SCH (09:00)
[2018-11-09] MEDS: ASPIRIN EC 325 MG TABLET PO SCH (10:21)
[2018-11-09] MEDS: PANTOPRAZOLE 40 MG TABLET PO SCH ×2 (10:21→22:25)
[2018-11-09] MEDS: ENOXAPARIN 80 MG/0.8 ML SYRINGE SUBCUT SCH (13:31)
[2018-11-09] MEDS ORDERED: methylPREDNISolone ACETATE 80 MG/1 ML VIAL IM ONE (16:12)
[2018-11-09] MEDS: ALBUTEROL 1.25 MG/3 ML NEB RESP TX SCH (20:07)
[2018-11-10] MEDS: ALBUTEROL 1.25 MG/3 ML NEB RESP TX SCH ×3 (00:22→13:00)
[2018-11-10] MEDS: ENOXAPARIN 80 MG/0.8 ML SYRINGE SUBCUT SCH ×2 (01:01→12:16)
[2018-11-10] MEDS: NITROGLYCERIN 2% OINT 1 INCH/GM PACK TOP SCH ×3 (01:02→12:17)
[2018-11-10] MEDS: SODIUM CHLORIDE 0.9% 1,000 ML IV SCH (02:17)
[2018-11-10] MEDS: BUDESONIDE/FORMOTEROL 160-4.5 INHALER 6 GM INH SCH (12:14)
[2018-11-10] MEDS: PANTOPRAZOLE 40 MG TABLET PO SCH (12:16)
[2018-11-10] MEDS: ASPIRIN EC 325 MG TABLET PO SCH (12:16)
[2018-11-10 16:25] VITALS: BP 107/50
[2018-11-10] MEDS ORDERED: ATORVASTATIN 20 MG TABLET PO SCH (21:00)
[2018-11-10] MEDS ORDERED: BUDESONIDE/FORMOTEROL 160-4.5 INHALER 6 GM INH SCH (21:00)
[2018-11-11] MEDS ORDERED: ASPIRIN EC 81 MG TABLET PO SCH (09:00)
[2018-11-11] MEDS ORDERED: ASCORBIC ACID 500 MG TABLET PO SCH (09:00)
[2018-11-11] MEDS ORDERED: OMEGA 3 ACID ETHYL ESTERS 1 GM CAPSULE PO SCH (09:00)
== END 2018-11-10 16:47 | disposition home or self-care (01) ==
LOC: N.EDINP 22:22 → N.ED 22:22 → N.TELEN 11-09 00:22
PROVIDERS: ADMIT Internal Medicine Cardiovascular Disease; ATTEND Internal Medicine Cardiovascular Disease

== ENCOUNTER 2022-04-15 02:41 | Observation (INO) ==
[2022-04-15 03:02] LABS: Basophils % 0.4 % (0.0-0.8); Eosinophils # 0.5 10*3/uL (0.0-0.87); Eosinophils % 6.6 % (0.00-10.9); Hematocrit 47.1 VOL% (35.7-47.0); Hemoglobin 15.3 GM/DL (12.0-16.0); Immature Granulocytes % 0.1 %; Immature Granulocytes Absolute 0.01 #; Lymphocytes # 3.6 10*3/uL (1.4-4.0); Lymphocytes % 49.9 % (21.3-54.2); Mean Corpuscular HGB Conc 32.5 GM/DL (32-36); Mean Corpuscular Volume 93.6 FL (87-102); Mean Platelet Volume 10.8 FL (9.6-12.0); Monocytes # 0.6 10*3/uL (0.11-0.8); Monocytes % 8.2 % (1.7-12.7); Neutrophils % 34.8 % (38.7-73.9); Platelet Count 177 T/CUMM (130-400); Red Blood Count 5.03 MC/CUMM (3.8-5.5); Red Cell Distribution Width 13.3 % (9.3-17.3); White Blood Count 7.2 T/CUMM (4-12)
[2022-04-15] MEDS ORDERED: ONDANSETRON 4 MG/2 ML VIAL IV STA (03:28)
[2022-04-15] MEDS ORDERED: ALBUTEROL/IPRATROPIUM 3 ML NEB RESP TX STA (03:28)
[2022-04-15] MEDS ORDERED: SODIUM CHLORIDE 0.9% 500 ML IV STA (03:28)
[2022-04-15] MEDS ORDERED: methylPREDNISolone SOD SUC 125 MG/2 ML VIAL IV STA (03:28)
[2022-04-15] MEDS ORDERED: MORPHINE 2 MG/1 ML SYRINGE IV STA (03:28)
[2022-04-15] MEDS ORDERED: ALBUTEROL NEB SOLN 5 MG/ML 20 ML/BOTTLE CONT NEB SCH (03:30)
[2022-04-15 03:54] LABS: Albumin 3.5 G/DL (3.4-5.0); Bilirubin,Total 0.4 MG/DL (0.20-1.00); Calcium 9.5 MG/DL (8.5-10.1); Osmolality,Calculated 281.1 MOS/KG (273-304); Potassium 3.7 MMOL/L (3.5-5.1); Total Protein 7.2 G/DL (6.4-8.2)
[2022-04-15] MEDS ORDERED: GLUCAGON 1 MG VIAL IM PRN (05:59)
[2022-04-15] MEDS ORDERED: ONDANSETRON 4 MG/2 ML VIAL IV PRN (05:59)
[2022-04-15] MEDS ORDERED: DEXTROSE 10% 250 ML BAG IV PRN (05:59)
[2022-04-15] MEDS ORDERED: ACETAMINOPHEN 325 MG TABLET PO PRN (05:59)
[2022-04-15] MEDS ORDERED: MESALAMINE 800 MG TABLET PO PRN (06:03)
[2022-04-15] MEDS ORDERED: MONTELUKAST 10 MG TABLET PO PRN (06:03)
[2022-04-15] MEDS: ENOXAPARIN 30 MG/0.3 ML SYRINGE SUBCUT SCH (06:50)
[2022-04-15] MEDS: LACTATED RINGERS 1,000 ML IV SCH ×2 (06:50→23:00)
[2022-04-15] MEDS: ALBUTEROL/IPRATROPIUM 3 ML NEB RESP TX SCH ×3 (07:47→19:41)
[2022-04-15] MEDS: BUDESONIDE/FORMOTEROL 160-4.5 INHALER 6 GM INH SCH ×2 (09:22→20:42)
[2022-04-15] MEDS: methylPREDNISolone SOD SUC 40 MG/1 ML VIAL IV SCH ×3 (09:23→22:15)
[2022-04-15] MEDS: AZITHROMYCIN 250 MG TABLET PO SCH (09:24)
[2022-04-15] MEDS: PANTOPRAZOLE 40 MG TABLET PO SCH (09:24)
[2022-04-15] MEDS: ATORVASTATIN 10 MG TABLET PO SCH (09:30)
[2022-04-16] MEDS: ALBUTEROL/IPRATROPIUM 3 ML NEB RESP TX SCH ×2 (00:33→07:05)
[2022-04-16] MEDS: ENOXAPARIN 30 MG/0.3 ML SYRINGE SUBCUT SCH (05:12)
[2022-04-16] MEDS: methylPREDNISolone SOD SUC 40 MG/1 ML VIAL IV SCH (05:27)
[2022-04-16 05:58] LABS: Basophils % 0.1 % (0.0-0.8); Hematocrit 43.8 VOL% (35.7-47.0); Hemoglobin 14.3 GM/DL (12.0-16.0); Immature Granulocytes % 0.4 %; Immature Granulocytes Absolute 0.06 #; Lymphocytes # 1.2 10*3/uL (1.4-4.0); Lymphocytes % 8.8 % (21.3-54.2); Mean Corpuscular HGB Conc 32.6 GM/DL (32-36); Mean Corpuscular Volume 93.2 FL (87-102); Monocytes # 0.8 10*3/uL (0.11-0.8); Monocytes % 5.3 % (1.7-12.7); Neutrophils % 85.4 % (38.7-73.9); Platelet Count 152 T/CUMM (130-400); Red Cell Distribution Width 13.4 % (9.3-17.3)
[2022-04-16 06:18] LABS: Calcium 9.4 MG/DL (8.5-10.1); Osmolality,Calculated 288.7 MOS/KG (273-304); Potassium 4.1 MMOL/L (3.5-5.1)
[2022-04-16 07:26] VITALS: BP 140/80
[2022-04-16] MEDS: BUDESONIDE/FORMOTEROL 160-4.5 INHALER 6 GM INH SCH (08:34)
[2022-04-16] MEDS: PANTOPRAZOLE 40 MG TABLET PO SCH (08:34)
[2022-04-16] MEDS: AZITHROMYCIN 250 MG TABLET PO SCH (08:34)
[2022-04-16] MEDS: ATORVASTATIN 10 MG TABLET PO SCH (09:03)
== END 2022-04-16 12:17 | disposition home or self-care (01) ==
LOC: SUATTDRO → N.EDINP 02:41 → N.ED 02:41 → N.EDINP 07:23 → N.2W 07:41
PROVIDERS: ADMIT Family Medicine; ATTEND Internal Medicine